=== PATIENT | male | born 1960 | race Caucasian/White ===

== ENCOUNTER 2020-10-26 12:46 | Emergency (ER) | payer OTHER ==
[~2020-10-26] VITALS: Ht 172.7 cm; Wt 100.2 kg
[~2020-10-26 12:46] MED LIST: ACTOS; CIPROFLOXACIN500 M1 PO; FLOMAX PO; GLUCOPHAGE500 MG; LEXAPRO20 MG; LOTREL 5-40 MG1 EACH; PERCOCET 5-3251 EACH PO
[2020-10-26 13:30] LABS: ABSOLUTE BASOPHILS 0.1 thou/uL (0.0-0.2); ABSOLUTE EOSINOPHILS 0.3 thou/uL (0.0-0.7); ABSOLUTE LYMPHOCYTES 3.5 thou/uL (0.8-5.3); ABSOLUTE MONOCYTES 0.8 thou/uL (0.0-1.2); ABSOLUTE NEUTROPHILS 7.9 thou/uL (1.6-8.1); EOSINOPHILS 2.5 %; HEMATOCRIT 52.7 % (42.0-52.0); HEMOGLOBIN 17.3 gm/dL (14.0-18.0); LYMPHOCYTES 27.6 %; MCH 29.3 pg (26.0-34.0); MCHC 32.9 g/dL (28.0-37.0); MCV 89.1 fL (80.0-100.0); MPV 8.9 fl. (7.2-11.1); NUCLEATED RBCS 0 /100WBC; PLATELET COUNT* 189 thou/uL (150-400); POLYS 62.9 %; RBC 5.91 mil/uL (4.50-6.00); RDW-CV 13.3 % (10.5-14.5); WBC 12.6 thou/uL (4.0-11.0)
[2020-10-26 13:37] LABS: POTASSIUM 3.4 mmol/L (3.5-5.1)
[2020-10-26 13:41] LABS: ALBUMIN 4.4 g/dL (3.4-5.0); TOTAL BILIRUBIN 0.5 mg/dL (<0.1-1.0); TOTAL PROTEIN 8.3 g/dL (6.4-8.2)
[2020-10-26 15:28] LABS: URINE BILIRUBIN NEGATIVE (Negative); URINE BLOOD NEGATIVE (Negative); URINE CLARITY CLEAR; URINE COLOR YELLOW; URINE GLUCOSE-RANDOM 3+ (Negative); URINE KETONES NEGATIVE (Negative); URINE LEUKOCYTES-REFLEX NEGATIVE (Negative); URINE NITRITE-REFLEX NEGATIVE (Negative); URINE PROTEIN NEGATIVE (Negative); URINE UROBILINOGEN 0.2 E.U./dl (0.2-1.0)
[2020-10-26] MEDS ORDERED: ZOFRAN ODT4 MG SUBLING (15:30)
[2020-10-26] MEDS ORDERED: PERCOCET 5-3251 EACH PO (15:30)
[2020-10-26] MEDS ORDERED: FLAGYL500 M1 PO (15:30)
[2020-10-26] MEDS ORDERED: CIPROFLOXACIN500 M1 PO (15:30)
--- NOTE | 2020-10-26 15:39 | EKG ---
[place] [address] ELECTROCARDIOGRAM REPORT Name: YESENIA LI Room: [facility]#: [id number] Admission: 10/26/20 Attend Phys: Discharge: Date of : 60 Date of Service: 10/26/20 1324 Report #: [id number] THIS REPORT FOR: //name// [facility] ED Test Date: 2020-10-26 Test Time: 13:24:27 Pat Name: YESENIA LI Department: Room: Gender: Continuous Miner: [place] : 1960 Requested By: Serge Naylor Order Number: [id number] MD: Inderjit Garcia Measurements Intervals [place] Rate: 70 P: 36 AK: 183 QRS: 59 QRSD: 91 T: 17 QT: 377 QTc: 407 Interpretive Statements Sinus rhythm No previous ECG available for comparison Electronically Signed On 10-26-2020 15:39:03 [employer] by Inderjit Garcia [email or web address] <ELECTRONICALLY SIGNED> By: Inderjit Garcia MD, [facility] 10/26/20 1539 1324 1324 Inderjit Garcia MD, FACC /EPI
[2020-10-26 15:43] VITALS: BP 144/85
== END 2020-10-26 15:43 | disposition home or self-care (01) ==
LOC: M.ERS 12:46
PROVIDERS: Family Medicine
DX: K52.9 Noninfective gastroenteritis and colitis, unspecified (principal); I10 Essential (primary) hypertension; E78.00 Pure hypercholesterolemia, unspecified; Z88.1 Allergy status to other antibiotic agents; Z88.0 Allergy status to penicillin; Z87.442 Personal history of urinary calculi